=== PATIENT | female | born 1985 | race Caucasian/White ===

== ENCOUNTER → 2017-02-12 | Outpatient (CLI) | payer BC ==
[~2017-02-12] MED LIST: DERMOPLAST SPRA56 GM TOP; FERROUS SULFAT134 MG PO; FOLIC ACID1 MG; INDOCIN50 MG PO; LEXAPRO10 MG PO; LEXAPRO20 MG PO; MOTRIN800 MG PO; NORCO 5-325 TA1 EACH PO; PERCOCET 5-3251 EACH PO; PRENATAL 1+1)(P1 TAB PO; SINGULAIR10 MG PO; ZOFRAN ODT4 MG TL
== END | disposition disaster alternative care site (69) ==
LOC: GLAB 08:00
DX: R73.09 Other abnormal glucose (principal)

== ENCOUNTER 2017-04-28 21:45 | Outpatient (CLI) | payer BC ==
[~2017-04-28] VITALS: Ht 162.6 cm
--- NOTE | ~2017-04-28 | DS ---
PATIENT'S NAME: JULES ENGLISH [facility] AGE: 31 Y [address] ROOM: [address] [address] LOCATION: BS ADMIT DATE: 04/28/2017 Discharge Summary DISCHARGE DATE: 04/29/2017 FAMILY PHYSICIAN: Ishmael Barlow MD ATTENDING PHYSICIAN: Adelita Wyman This is a patient of Dr. Berry. HOSPITAL COURSE: She presents at 35 weeks 5 days with possible rupture of membranes and contractions. Sterile speculum exam revealed negative pooling, negative Nitrazine, negative ferning. Cervix was checked and fingertip 100%, 0 station and vertex. heart tones are reactive and reassuring and TOCO was irregular. Blood pressure is normal. The patient is discharged home with followup on Sunday. MD KIRT CAMARILLOP/bhaktil /[id number] d: 04/29/17 0115 t: 05/15/17 0919, DISCHARGE SUMMARY
[~2017-04-28 21:45] MED LIST changes: -DERMOPLAST SPRA56 GM TOP; -LEXAPRO20 MG PO; -NORCO 5-325 TA1 EACH PO; -SINGULAIR10 MG PO
[2017-04-28] MEDS ORDERED: SINGULAIR10 MG PO (22:51)
== END 2017-04-29 01:45 | disposition disaster alternative care site (69) ==
LOC: GOBS 21:45 → GOBM 21:45
DX: O47.03 False labor before 37 completed weeks of gestation, third trimester (principal)
CPT/HCPCS: G0463

== ENCOUNTER 2017-05-23 06:20 | Inpatient (IN) | payer BC ==
[~2017-05-23] VITALS: Ht 160 cm; Wt 65.6 kg
--- NOTE | ~2017-05-23 | OR ---
PATIENT'S NAME: JULES ENGLISH [facility] AGE: 31 Y [address] ROOM: [place] [id number] LOCATION: [facility] ADMIT DATE: 05/23/2017 OR/Procedure Report DISCHARGE DATE: FAMILY PHYSICIAN: GUADALUPE GARDUNO MD ATTENDING PHYSICIAN: Hortencia Carmen SURGEON: Hortencia Carmen MD CLAIMS COUNSEL: DATE OF PROCEDURE: 05/23/2017 PREOPERATIVE DIAGNOSES: 1. Intrauterine at 39+ weeks. 2. Favorable cervix. 3. History of twin loss at 20 weeks. POSTOPERATIVE DIAGNOSES: 1. Intrauterine at 39+ weeks. 2. Favorable cervix. 3. History of twin loss at 20 weeks. PROCEDURE PERFORMED: Spontaneous vaginal delivery. ESTIMATED BLOOD LOSS: 300 mL. ANESTHESIA: Epidural. FINDINGS: Male infant, score 8 and 9. Weight 7 pounds 3 ounces. Intact placenta, 3-vessel cord. Third-degree perineal laceration. Clear amniotic fluid. INDICATIONS: This patient is a 31-year-old, G3, P-0-0-2-0, female who presented at 3 for an induction of labor. She had a history of a second- trimester twin loss after arbp-se-tidm transfusion syndrome in labor. The patient had artificial rupture of membranes, followed by Pitocin. She progressed along a faster than normal labor curve to complete and underwent expulsive efforts for just about 30-45 minutes. PROCEDURE IN DETAIL: With expulsive efforts, the head was delivered over an intact perineum. The rest of fetus delivered. The nose and mouth were bulb suctioned. The cord was clamped and cut. The was handed to awaiting team. Cord blood was drawn. The placenta delivered with manual traction. Cervix, vagina, and perineum were examined. There was a third- degree perineal laceration noted. The sphincter was reapproximated with 0 Vicryl suture with 3 interrupted sutures posteriorly, inferiorly, and anteriorly and then the rest of the third-degree perineal laceration was repaired in a standard fashion with Vicryl suture. PATIENT'S NAME: JULES ENGLISH [facility] AGE: 31 Y [address] ROOM: [place] [id number] LOCATION: [facility] ADMIT DATE: 05/23/2017 OR/Procedure Report DISCHARGE DATE: FAMILY PHYSICIAN: GUADALUPE GARDUNO MD ATTENDING PHYSICIAN: Hortencia Carmen COMPLICATIONS: None. CONDITION: Mom stable in room. Infant to nursery. HORTENCIA CARMEN MD AJJ/modl /[id number] d: 05/24/17 1747 t: 05/29/17 1103, OPERATIVE SUMMARY
[~2017-05-23 06:20] MED LIST changes: +SINGULAIR10 MG PO
[2017-05-23 07:28] LABS: BASOPHIL % 0.4 %; EOSINOPHIL # 0.1 K/uL (0.0-0.5); HEMATOCRIT 33.6 % (33.0-46.0); HEMOGLOBIN 11.5 g/dL (11.0-15.0); IMMATURE GRANULOCYTE # 0.2 K/uL (0.0-0.3); IMMATURE GRANULOCYTE % 2.4 %; LYMPHOCYTE # 1.5 K/uL (0.8-4.0); LYMPHOCYTE % 14.8 %; MCH 31.7 pg (27.0-34.0); MCHC 34.2 gm/dL (32.0-36.5); MCV 92.6 fl (83.0-98.0); MONOCYTE # 0.8 K/uL (0.0-1.0); MPV 12.8 fl (9.4-12.4); NEUTROPHIL # (ANC) 7.3 K/uL (1.8-7.8); NEUTROPHIL % 73.4 %; NRBC % 0 /100WBC (0-0.00); PLATELET COUNT 133 K/uL (150-450); RDW-CV 13.5 % (11.9-14.6); WBC 9.9 K/uL (4.0-11.0)
[2017-05-23 07:29] LABS: RBC 3.63 M/uL (3.50-5.50)
[2017-05-23] MEDS ORDERED: LEXAPRO20 MG PO (08:01)
[2017-05-23 14:09] LABS: BICARBONATE 22.7 mmol/L (18.0-23.0); PCO2 75 mmHg (35-45); PO2 23 mmHg (80-90)
--- NOTE | 2017-05-24 04:30 | NUR ---
VSS, fundus firm, 1 down, lochia small. emptying bladder without difficulty. Tylenol and motrin at 0100, for uterine cramping and perineal pain. She is using tea pads and that is helping, encouraged pedro pacheco but she wants to wait til today. Works well with but does worry. Takes lexapro for anxiety. Home on sunday.
[2017-05-24 04:59] LABS: BASOPHIL % 0.2 %; EOSINOPHIL # 0.1 K/uL (0.0-0.5); EOSINOPHIL % 0.8 %; HEMATOCRIT 29.9 % (33.0-46.0); HEMOGLOBIN 10.2 g/dL (11.0-15.0); IMMATURE GRANULOCYTE # 0.2 K/uL (0.0-0.3); IMMATURE GRANULOCYTE % 1.4 %; LYMPHOCYTE # 1.6 K/uL (0.8-4.0); LYMPHOCYTE % 12.1 %; MCH 32.5 pg (27.0-34.0); MCHC 34.1 gm/dL (32.0-36.5); MCV 95.2 fl (83.0-98.0); MONOCYTE % 7.7 %; MPV 12.8 fl (9.4-12.4); NEUTROPHIL # (ANC) 10.2 K/uL (1.8-7.8); NEUTROPHIL % 77.8 %; NRBC % 0 /100WBC (0-0.00); PLATELET COUNT 125 K/uL (150-450); RBC 3.14 M/uL (3.50-5.50); RDW-CV 13.7 % (11.9-14.6); WBC 13.1 K/uL (4.0-11.0)
--- NOTE | 2017-05-24 14:59 | NUR ---
Met with mom and dad at bedside today. Introduced myself and explained my role with the CM department. Instructed them to contact their insurance within the first 30 days to get baby added to the policy. Parents state they have all necessary baby items at home for baby. Provided them with information on post depression and discussed signs and symptoms. mom states she has problems with anxiety so I encouraged her to read the information and ask to talk to me if she has any other questions. No other needs at this time. Will continue to follow and offer supports.
--- NOTE | 2017-05-25 05:40 | NUR ---
VSS, fundus firm, lochia small and emptying bladder without difficulty. [place]lin last night at 2145, home today, patient needs an order for nipple cream. doing well, lexapro dosage was increased yesterday. Works well with .
[2017-05-25] MEDS ORDERED: DERMOPLAST SPRA56 GM TOP (11:44)
[2017-05-25] MEDS ORDERED: NORCO 5-325 TA1 EACH PO (11:49)
[2017-05-25] MEDS ORDERED: MOTRIN800 MG PO (11:50)
== END 2017-05-25 13:55 | disposition disaster alternative care site (69) | DRG 775 ==
LOC: GOBS 06:20 → GOBM 06:20 → GOBS 06:21 → GOBM 06:22 → GOBS 05-25 13:55
PROVIDERS: ADMIT Obstetrics & Gynecology
PROC: 3E033VJ Introduction of Other Hormone into Peripheral Vein, Percutaneous Approach (ICD-10-PCS; principal; 2017-05-23)
PROC: 0DQR0ZZ Repair Anal Sphincter, Open Approach (ICD-10-PCS; principal; 2017-05-23)
PROC: 10907ZC Drainage of Amniotic Fluid, Therapeutic from Products of Conception, Via Natural or Artificial Opening (ICD-10-PCS; principal; 2017-05-23)
PROC: 10E0XZZ Delivery of Products of Conception, External Approach (ICD-10-PCS; principal; 2017-05-23)
PROC: 4A1HX4Z Monitoring of Products of Conception, Cardiac Electrical Activity, External Approach (ICD-10-PCS; principal; 2017-05-23)
DX: O70.20 Third degree perineal laceration during delivery, unspecified (principal); O75.89 Other specified complications of labor and delivery; Z3A.39 39 weeks gestation of pregnancy; Z37.0 Single live birth
CPT/HCPCS: J2001; J2590; J3010; J7120